=== PATIENT | female | born 1980 | race American Indian/Alaskan Native ===

== ENCOUNTER → 2020-09-02 | Outpatient (CLI) | payer OTHER | END | disposition home or self-care (01) | LOC: NST 14:18 | PROVIDERS: ATTEND Obstetrics & Gynecology Maternal & Fetal Medicine | DX: Z34.83 Encounter for supervision of other normal pregnancy, third trimester (principal) ==

== ENCOUNTER 2020-09-10 12:00 | Inpatient (IN) | payer OTHER ==
[~2020-09-10] VITALS: Ht 167.6 cm; Wt 82.1 kg
[2020-09-17] MEDS ORDERED: PRENATAL TABLE1 EAC1 PO (07:57)
== END 2020-09-19 13:32 | disposition home or self-care (01) | DRG 807 ==
LOC: LDR 09-16 12:00 → SURG-SUITE 09-17 13:20
PROVIDERS: ADMIT Obstetrics & Gynecology Maternal & Fetal Medicine; ATTEND Obstetrics & Gynecology Maternal & Fetal Medicine
PROC: 10E0XZZ Delivery of Products of Conception, External Approach (ICD-10-PCS; principal; 2020-09-17)
PROC: 0KQM0ZZ Repair Perineum Muscle, Open Approach (ICD-10-PCS; 2020-09-17)
PROC: 0W8NXZZ Division of Female Perineum, External Approach (ICD-10-PCS; 2020-09-17)
PROC: 10907ZC Drainage of Amniotic Fluid, Therapeutic from Products of Conception, Via Natural or Artificial Opening (ICD-10-PCS; 2020-09-17)
PROC: 3E033VJ Introduction of Other Hormone into Peripheral Vein, Percutaneous Approach (ICD-10-PCS; 2020-09-17)
PROC: 4A1HXFZ Monitoring of Products of Conception, Cardiac Rhythm, External Approach (ICD-10-PCS; 2020-09-17)
DX: O70.1 Second degree perineal laceration during delivery (principal); Z37.0 Single live birth; Z3A.39 39 weeks gestation of pregnancy; Z20.822 Contact with and (suspected) exposure to COVID-19

== ENCOUNTER 2024-08-20 06:04 | Day surgery (SDC) | payer OTHER ==
[2024-08-13 11:10] LABS: EOS # 0.06 (0.04-0.54); EOS % 1.5 % (0.7-7.0); HEMATOCRIT 37.9 % (34.1-44.9); LYMPH # 1.34 (1.18-3.74); MEAN CORPUSCULAR HEMOGLOBIN 31.3 pg (25.6-32.2); MONO # 0.32 (0.24-0.82); MONO % 7.9 % (4.7-12.5); NEUT # 2.29 (1.56-6.13); NEUT % 56.4 % (34.0-71.1); PLATELET COUNT 245 K/uL (163-369); RED BLOOD COUNT 4.16 M/uL (3.93-5.22); RED CELL DISTRIBUTION WIDTH 12.5 % (11.6-14.4)
[2024-08-13 11:12] VITALS: BP 100/68
[2024-08-13 11:40] LABS: INR 1.04; PARTIAL THROMBOPLASTIN TIME 25.6 SECONDS (22.0-34.0); PROTHROMBIN TIME 11.3 SECONDS (9.0-11.5)
[2024-08-13 12:29] LABS: ALBUMIN 3.7 gm/dL (3.4-5.0); BILIRUBIN TOTAL 0.73 mg/dL (0.3-1.2); CALCIUM 9.1 mg/dL (8.5-10.1); CREATININE SERUM 0.76 mg/dL (0.55-1.02); GFR 83.86; GLOBULINA 2.7 G/DL (2.4-3.5); POTASSIUM 4.71 mEq/L (3.5-5.1); TOTAL PROTEIN 6.4 gm/dL (6.4-8.2)
[~2024-08-20] VITALS: Ht 167.6 cm; Wt 62.6 kg
[~2024-08-20 06:04] MED LIST: MULTI VITAMIN1 EACH PO; PRENATAL TABLE1 EAC1 PO
[2024-08-20] MEDS ORDERED: POVIDONE-IODINE 118 ML BOTT TOP ONE (07:11)
== END 2024-08-20 14:00 | disposition home or self-care (01) ==
LOC: CIR.AMB 06:04
PROVIDERS: ATTEND Obstetrics & Gynecology Maternal & Fetal Medicine
DX: N84.0 Polyp of corpus uteri (principal)